=== PATIENT | female | born 1980 | race Two or more races ===

== ENCOUNTER 2023-10-24 14:47 | Emergency (ER) | payer MEDICAID ==
[~2023-10-24] VITALS: Ht 157.5 cm; Wt 72.2 kg
[2023-10-24 15:55] VITALS: BP 126/76; PULSE 101; RESP 18; O2SAT 98
[2023-10-24] MEDS ORDERED: IBUPROFEN 800 MG TAB PO ONE (16:30)
[2023-10-24] MEDS ORDERED: cefTRIAXone SOD 1,000 MG VL IM ONE (16:30)
[2023-10-24] MEDS ORDERED: CLIN300C70 PO (16:31)
[2023-10-24] MEDS ORDERED: IBUP-1454 PO (16:31)
[2023-10-24 16:33] VITALS: TEMP 98.6
== END 2023-10-24 16:49 | disposition home or self-care (01) ==
LOC: ER 14:47
DX: K04.7 Periapical abscess without sinus (principal); Z79.1 Long term (current) use of non-steroidal anti-inflammatories (NSAID); Z79.2 Long term (current) use of antibiotics
CPT/HCPCS: 96372; 99283; J0696

== ENCOUNTER 2024-07-27 09:22 | Emergency (ER) | payer MEDICAID, OTHER ==
[~2024-07-27] VITALS: Ht 154.9 cm; Wt 71.0 kg
[~2024-07-27 09:22] MED LIST: CLIN1CAP70 PO; IBUP-1454 PO
[2024-07-27 10:02] VITALS: BP 128/72; PULSE 85; RESP 16; TEMP 98.7; O2SAT 100
--- NOTE | 2024-07-27 10:02 | ED.PDOC ---
Musculoskeletal HPI Comments 43 y/o female pt presents to the clinic for left hip pain. Pt reports that she slipped 3 weeks ago landing on the left knee. Pt reports that she had a hip replacement 3 years ago. Pt denies a history of sciatica pain. Pt has taken 600mg ibuprofen for pain. Pt reports last dosage at 10pm last night. Patient reports that the pain radiates down the lower left leg. Patient is mostly concerned due to the pain increasing over the past 2 weeks. Patient has on a hip brace. Patient is ambulatory. Patient states the pain is increased standing in place. Patient denies any pelvic pain. Chief Complaint: Fall Injury Time Seen by MD: 09:47 Primary Care Provider: WARREN Reviewed Notes: Nurses Notes, Medications, Allergies Allergies: Coded Allergies: NO KNOWN ALLERGIES (Unverified , 10/24/23) Home Meds Active Scripts Gabapentin (Once-Daily) (Gabapentin) 300 Mg Tab, 300 MG PO Q12HR for 7 Days, #14 TAB Prov:JAYCEE KLEIN BANKMAN 07/27/24 Ibuprofen (Ibuprofen) 600 Mg Tab, 600 MG PO Q8HPRN PRN for 30 Days, #90 TAB 0 Refills Prov:JAYCEE KLEIN BANKMAN 07/27/24 Ibuprofen (Ibuprofen) 600 Mg Tab, 1 TAB PO TID, #30 TAB Prov:ELOISA ROMAN 10/24/23 Clindamycin Hcl (Clindamycin Hcl) 300 Mg Cap, 1 CAP PO TID, #30 CAP Prov:ELOISA ROMAN 10/24/23 Information Source: Patient Mode of Arrival: Ambulatory Past Medical History PAST MEDICAL HISTORY: Denies Surgical History: Tubal Ligation, Denies all surgeries Surgical History (Other): Left hip replacement in 2020 TESTING CONSULTANT History: No Pertinent TESTING CONSULTANT History Family History Family History: Reviewed,noncontributory to illness Social History Smoker: Non-Smoker Alcohol: Denies ETOH Use Drugs: Denies Drug Use Lives In: Home Musculoskeletal: reports: joint pain (Left hip) Physical Exam General Appearance: No Apparent Distress, Normal HEENT: Normal ENT Inspection, Pharynx Normal, TMs Normal Neck: Full Range of Motion, Non-Tender, Normal, Normal Inspection Respiratory: Chest Non-Tender, Lungs Clear, No Accessory Muscle Use, No Respiratory Distress, Normal Breath Sounds Cardiovascular: No Edema, No JVD, No Murmur, No Gallop, Normal Peripheral Pulses, Regular Rate/Rhythm Breast Exam: Deferred Gastrointestinal: No Organomegaly, Non Tender, No Pulsatile Mass, Normal Bowel Sounds, Soft Genitalia: Deferred Pelvic: Deferred Rectal: Deferred Extremities: No calf tenderness, Normal capillary refill, Normal inspection, Normal range of motion, No pedal edema, Pelvis stable, Tender (Left hip, left buttocks) Musculoskeletal : Location: Left Extremity Location: Hip Apperance: Normal, Tenderness: Mild Neurologic: Alert, health insurance agent II-XII nml as Tested, No Motor Deficits, Normal Affect, Normal Mood, No Sensory Deficits Cerebellar Function: Normal Reflexes: Normal Skin: Dry, Normal Color, Warm Lymphatic: No Adenopathy Was a procedure done? Was a procedure done?: No Differential Diagnosis EXT Differential Diagnosis: Fracture, Sprain, Dislocation, Contusion, Strain, Arthritis X-Ray, Labs, Meds, VS Vital Signs Date Time Temp Pulse Resp B/P (MAP) Pulse Ox O2 Delivery O2 Flow Rate FiO2 07/27/24 10:02 85 16 100 Room Air 07/27/24 10:02 98.7 85 16 128/72 (90) 100 98.7 07/27/24 09:31 98.7 85 16 128/72 (90) 100 Lab Test 07/27/24 10:03 Range/Units Urine Test Negative Negative Current Medications Medications (Trade) Dose Ordered Sig/Wagner Route Start Time Stop Time Status Last Admin Acetaminophen/ Hydrocodone Bitart ([place] 7.5/325MG Tab) 1 tab ONCE ONCE PO 07/27/24 10:15 07/27/24 10:39 DC 07/27/24 10:42 ORDERING PHYSICIAN: JAYCEE KLEIN PROCEDURE(s): LHIP - L HIP COMPLETE XRAY REASON: h/o left hip replacement ORDER NUMBER(s): [id number], ACCESSION NUMBER(s): [id number] XY L HIP COMPLETE XRAY HISTORY: h/o left hip replacement TECHNICAL DATA: Frontal view was obtained of the pelvis with frontal view and frog lateral view of the left hip. COMPARISON: None FINDINGS: Left hip arthroplasty appears intact and in good alignment. No left hip fracture is identified. There is no abnormality involving the bony pelvis. The sacroiliac joints appear normal. The pubic symphysis appears normal. A surgical pin is seen in the right femur.. The proximal femurs demonstrate no acute abnormality. There is degenerative change of the visualized lower lumbar spine. IMPRESSION: Left hip arthroplasty appears intact and in good alignment. ATED BY: MITCH BABCOCK MD DICTATED DATE/TIME: 07/27/24 1206 SIGNED BY: MITCH BABCOCK MD SIGNED DATE/TIME: 07/27/24 1206 CC: X-Ray, Labs, Meds, VS Comment Patient advised to take ibuprofen and [place] as prescribed. Patient to follow up with primary care physician in the next 2-3 days. On re-evaluation patient has symptomatic improvement. Patient is stable for discharge at this time. All test results and diagnostic imaging have been interpreted. All diagnostic findings, discharge care, and education instruction provided to the patient. Follow-up with PCP in 2-3 days Patient verbalized understanding, discharge instructions and agrees to treatment plan Vital signs are stable Patient is ambulatory Patient advised of which symptoms necessitate a return visit to the emergency room. Patient to return emergency room for any new worsening symptoms. Patient is aware that the purpose of this visit is for an acute medical emergency requiring emergent stabilization. Chronic conditions, including malignancies have not been ruled out. Patient is instructed to follow up with PCP as directed for continued care and workup. If unable to arrange follow up, patient is to return to the emergency room for reassessment. Patient was given verbal and written discharge instructions and acknowledges understanding Time of 1ST Reevaluation: 13:00 Reevaluation 1ST: Improved Patient Education/Counseling: Diagnosis, Treatment, Prognosis Family Education/Counseling: No Family Present Departure 1 Departure Time of Disposition: 13:10 Impression: Primary Impression: Sciatica of left side Additional Impressions: Left hip pain History of hip replacement Qualified Codes: Z96.642 - Presence of left artificial hip joint Ruled Out: Dental infection Disposition: HOME / SELF CARE / HOMELESS Condition: Stable e-Prescriptions Gabapentin (Once-Daily) (Gabapentin) 300 Mg Tab 300 MG PO Q12HR for 7 Days, #14 TAB Prov: JAYCEE KLEIN BANKMAN 07/27/24 Ibuprofen (Ibuprofen) 600 Mg Tab 600 MG PO Q8HPRN PRN for 30 Days, #90 TAB 0 Refills Prov: JAYCEE KLEIN BANKMAN 07/27/24 Critical Care Note Critical Care Time?: No Stability Stability form required: No Heart Score Heart Score: Heart Score Response (Comments) Value History N/A 0 EKG N/A 0 Age N/A 0 Risk Factors N/A 0 Troponin N/A 0 Total 0 JAYCEE KLEIN [facility] Jul 27, 2024 10:02
[2024-07-27] MEDS: HYDROcodone-ACET 7.5/325MG TAB PO ONE (10:42)
--- NOTE | 2024-07-27 12:08 | DVH ---
XY L HIP COMPLETE XRAY HISTORY: h/o left hip replacement TECHNICAL DATA: Frontal view was obtained of the pelvis with frontal view and frog lateral view of th e left hip. COMPARISON: None FINDINGS: Left hip arthroplasty appears intact and in good alignment. No left hip fracture is identified. There is no abnormality involving the bony pelvis. The sacroiliac joints appear normal. The pubic symphysi s appears normal. A surgical pin is seen in the right femur.. The proximal femurs demonstrate no acut e abnormality. There is degenerative change of the visualized lower lumbar spine. IMPRESSION: Left hip arthroplasty appears intact and in good alignment.
[2024-07-27] MEDS ORDERED: IBUP-1454 PO (12:26)
[2024-07-27] MEDS ORDERED: HYDR1TAB97 PO (12:26)
[2024-07-27] MEDS ORDERED: GABA300T4 PO (13:59)
[2024-07-28] MEDS ORDERED: CYCL-837 PO (19:50)
== END 2024-07-27 12:29 | disposition home or self-care (01) ==
LOC: ER 09:22
DX: M25.552 Pain in left hip (principal); M54.32 Sciatica, left side; Z79.1 Long term (current) use of non-steroidal anti-inflammatories (NSAID); Z96.642 Presence of left artificial hip joint; Z98.51 Tubal ligation status; Z32.02 Encounter for pregnancy test, result negative
CPT/HCPCS: 73502; 81025

== ENCOUNTER 2025-08-16 14:46 | Inpatient (IN) | payer MEDICAID, OTHER ==
[~2025-08-16] VITALS: Ht 157.5 cm; Wt 71.0 kg
[~2025-08-16 14:46] MED LIST changes: +CYCL-837 PO
--- NOTE | 2025-08-16 16:34 | ED.PDOC ---
HPI (NEURO) HPI Comments 44 y/o F, presents to the ED for CC of dizziness. Patient states, she has been experiencing symptoms of dizziness with associated nausea, vomiting, and headache x2days. Patient reports, symptoms to worsen with light exertion feeling as if she will lose her balance. Patient denies headache with aura, chest pain, or shortness of breath. Chief Complaint: Dizziness Time Seen by MD: 16:05 Primary Care Provider: WARREN Reviewed Notes: Nurses Notes, Medications, Allergies Information Source: Patient Mode of Arrival: Ambulatory Severity: Moderate Dizziness/Weakness Severity: Unable to do activities Headache Severity: Moderate Timing: Days Duration: Since onset Prehospital treatment: None Headache Location: Generalized Onset: With light exertion Circumstances: Spontaneous Symptoms: Vertigo Before: Normal During: Awake After: Normal Mentation History of: None Modifying factors: Nothing Associated Signs and Symptoms: Headache, Nausea, Vomiting Past Medical History PAST MEDICAL HISTORY: Denies Surgical History: Cholecystectomy, Tubal Ligation BUSINESS LINE MANAGER History: No Pertinent BUSINESS LINE MANAGER History Family History Family History: Reviewed,noncontributory to illness Social History Smoker: Non-Smoker Alcohol: Denies ETOH Use Drugs: Denies Drug Use Lives In: Home Constitutional: denies: chills, diaphoresis, fatigue, fever, malaise, sweats, weakness, others EENTM: denies: blurred vision, double vision, ear bleeding, ear discharge, ear drainage, ear pain, ear ringing, eye pain, eye redness, hearing loss, mouth pain, mouth swelling, nasal discharge, nose bleeding, nose congestion, nose pain, photophobia, tearing, throat pain, throat swelling, voice changes, others Respiratory: denies: cough, hemoptysis, orthopnea, SOB at rest, shortness of breath, SOB with excertion, stridor, wheezing, others Cardiovascular: denies: chest pain, dizzy spells, diaphoresis, Dyspnea on exertion, edema, irregular heart beat, left arm pain, lightheadedness, palpitations, PND, syncope, others Gastrointestinal: reports: vomiting; denies: abdomen distended, abdominal pain, blood streaked bowels, constipated, diarrhea, dysphagia, difficulty swallowing, hematemesis, melena, nausea, poor appetite, poor fluid intake, rectal bleeding, rectal pain, others Genitourinary: denies: abnormal vagina bleeding, burning, dyspareunia, dysuria, flank pain, frequency, hematuria, incontinence, pain, , vagina discharge, urgency, others Neurological: reports: dizziness, headache; denies: fainting, left sided numbness, left sided weakness, numbness, paresthesia, pre-existing deficit, right sided numbness, right sided weakness, seizure, speech problems, tingling, tremors, weakness, others Musculoskeletal: denies: back pain, gout, joint pain, joint swelling, muscle pain, muscle stiffness, neck pain, others Integumetry: denies: bruises, change in color, change in hair/nails, dryness, laceration, lesions, lumps, rash, wounds, others Allergic/Immunocompromised: denies: Difficulty Healing, Frequent Infections, Hives, Itching, others Hematologic/Lymphatic: denies: anemia, blood clots, easy bleeding, easy bruising, swollen glands, others Endocrine: denies: excessive hunger, excessive sweating, excessive thirst, excessive urination, flushing, intolerance to cold, intolerance to heat, unexplained weight gain, unexplained weight loss, others Psychiatric: denies: anxiety, bipolar disorder, depression, hopeless, panic disorder, schizophrenia, sleepless, suicidal, others All Other Systems: Reviewed and Negative Physical Exam General Appearance: Moderate Distress HEENT: Normal ENT Inspection, Pharynx Normal, TMs Normal Neck: Full Range of Motion, Non-Tender, Normal, Normal Inspection Respiratory: Chest Non-Tender, Lungs Clear, No Accessory Muscle Use, No Respiratory Distress, Normal Breath Sounds Cardiovascular: No Edema, No JVD, No Murmur, No Gallop, Normal Peripheral Pulses, Regular Rate/Rhythm Breast Exam: Deferred Gastrointestinal: No Organomegaly, Non Tender, No Pulsatile Mass, Normal Bowel Sounds, Soft Genitalia: Deferred Pelvic: Deferred Rectal: Deferred Extremities: No calf tenderness, Normal capillary refill, Normal inspection, Normal range of motion, Non-tender, No pedal edema Musculoskeletal : Apperance: Normal Neurologic: Alert, hydroponics worker II-XII nml as Tested, No Motor Deficits, Normal Affect, Normal Mood, No Sensory Deficits Cerebellar Function: Normal Reflexes: Normal Skin: Dry, Normal Color, Warm Peripheral Pulses: 3+ Radial (R), 3+ Radial (L) Lymphatic: No Adenopathy Was a procedure done? Was a procedure done?: No Differential Diagnosis (SZ) Seizure: Psychogenic Seizure, Anticonvulsant Withdrawl, CVA/TIA General Weakness: Vertigo: central, Vertigo: peripheral X-Ray, Labs, Meds, VS Vital Signs Date Time Temp Pulse Resp B/P (MAP) Pulse Ox O2 Delivery O2 Flow Rate FiO2 08/16/25 16:36 98.1 90 18 128/92 (104) 98 98.1 08/16/25 14:48 98.2 96 18 125/92 98 98.2 Lab Test 08/16/25 16:28 08/16/25 15:30 Range/Units White Blood Count 8.6 4.4-10.8 10^3/uL Red Blood Count 4.29 4.0-5.20 10^6/uL Hemoglobin 13.4 12.2-16.2 g/dL Hematocrit 39.0 36.0-46.0 % Mean Corpuscular Volume 91.0 80.0-100.0 fL Mean Corpuscular Hemoglobin 31.4 28.0-32.0 pg Mean Corpuscular Hemoglobin Concent 34.5 32.0-36.0 g/dL Red Cell Distribution Width 12.7 11.8-14.3 % Platelet Count 346 140-450 10^3/uL Mean Platelet Volume 7.3 6.9-10.8 fL Neutrophils (%) (Auto) 57.1 37.0-80.0 % Lymphocytes (%) (Auto) 31.5 10.0-50.0 % Monocytes (%) (Auto) 8.4 0.0-12.0 % Eosinophils (%) (Auto) 2.4 0.0-7.0 % Basophils (%) (Auto) 0.6 0.0-2.0 % Neutrophils # (Auto) 4.9 1.6-8.6 10 ^3/uL Lymphocytes # (Auto) 2.7 0.4-5.4 10 ^3/uL Monocytes # (Auto) 0.7 0-1.3 10 ^3/uL Eosinophils # (Auto) 0.2 0-0.8 10 ^3/uL Basophils # (Auto) 0.1 0-0.2 10 ^3/uL Nucleated Red Blood Cells 0.0 % Sodium Level 139 136-145 mmol/L Potassium Level 3.8 3.5-5.1 mmol/L Chloride Level 102 98-107 mmol/L Carbon Dioxide Level 30 20-31 mmol/L Anion Gap 7 5-15 Blood Urea Nitrogen 13 9-23 mg/dL Creatinine 0.81 0.550-1.02 mg/dL Glomerular Filtration Rate Calc 91 >90 mL/min BUN/Creatinine Ratio 16.0 10.0-20.0 Serum Glucose 99 74-106 mg/dL Calcium Level 9.5 8.7-10.4 mg/dL Urine Color Light-yellow Yellow Urine Clarity Clear Clear Urine pH 5.5 5.0-9.0 Urine Specific [place] 1.027 1.001-1.035 Urine Protein Negative Negative Urine Ketones Negative Negative Urine Blood 2+ H Negative /uL Urine Nitrite Negative Negative Urine Bilirubin Negative Negative Urine Urobilinogen Normal Negative mg/dL Urine Leukocyte Esterase Negative Negative /uL Urine RBC 4 0 - 4 /hpf Urine Microscopic WBC 2 0-5 /HPF Urine Squamous Epithelial Cells Few <5 /hpf Urine Bacteria None seen None Seen /hpf Urine Mucus Few None Seen Urine Glucose Normal Normal mg/dL Patient alert. She is dizzy. Vitals stable. Answering all questions. Able to ambulate without any help. CT of the head. Explained to the patient. Continue monitoring. Time of 1ST Reevaluation: 16:35 Reevaluation 1ST: Unchanged Patient Education/Counseling: Diagnosis, Treatment Family Education/Counseling: No Family Present Departure 1 Departure Time of Disposition: 17:02 Impression: Primary Impression: Autonomic disorder Disposition: ADMITTED INPATIENT Admit to: Med Surg Condition: Guarded Critical Care Note Critical Care Time?: No Stability Stability form required: No Heart Score Heart Score: Heart Score Response (Comments) Value History N/A 0 EKG N/A 0 Age N/A 0 Risk Factors N/A 0 Troponin N/A 0 Total 0 I personally scribed for EILEEN APODACA MD ([email or web address]) on 08/16/25 at 16:34. Electronically submitted by Venus Godinez [email or web address]). EILEEN APODACA MD Aug 16, 2025 16:34
[2025-08-16 16:42] LABS: Hematocrit 39.0 % (36.0-46.0); Hemoglobin 13.4 g/dL (12.2-16.2); Mean Corpuscular Hemoglobin 31.4 pg (28.0-32.0); Mean Corpuscular Volume 91.0 fL (80.0-100.0); Nucleated Red Blood Cells % 0.0 %
[2025-08-16 16:46] LABS: Chloride 102 mmol/L (98-107); Potassium 3.8 mmol/L (3.5-5.1); Sodium 139 mmol/L (136-145)
[2025-08-16 16:47] LABS: Urine Protein, UAD Negative (Negative)
[2025-08-16 16:47] LABS: Anion Gap 7 (5-15); Calcium 9.5 mg/dL (8.7-10.4); Carbon Dioxide 30 mmol/L (20-31)
[2025-08-16 16:52] LABS: BUN/Creatinine Ratio 16.0 (10.0-20.0); Blood Urea Nitrogen 13 mg/dL (9-23); Glucose 99 mg/dL (74-106)
--- NOTE | 2025-08-16 18:08 | DVH ---
CT HEAD WITHOUT CONTRAST Indication: dizzy EXAM DATE: 08/16/2025 05:12 PM COMPARISON: None TECHNIQUE: CT of the head without intravenous contrast. RADIATION DOSE: CTDIvol: 52.33 mGy, DLP: 838.99 mGy*cm FINDINGS: There is no intracranial hemorrhage. There is no extra-axial fluid, mass, mass effect or midline shift. The ventricles are midline and normal in size. Basilar cisterns are patent. 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 The paranasal sinuses and mastoids are well-pneumatized. Imaged portion of the orbits are unremarkable. IMPRESSION: No intracranial hemorrhage or mass effect. 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 MRI brain can be obtained to evaluate for superimposed acute infarction.
[2025-08-16 21:33] VITALS: BP 137/91; PULSE 67; RESP 18; TEMP 98.3; O2SAT 100
[2025-08-16 22:07] VITALS: BP 137/91; PULSE 68; RESP 17; TEMP 98.3; O2SAT 100
[2025-08-16] MEDS: MECLIZINE HCL 25 MG TAB PO ONE (22:16)
[2025-08-16] MEDS ORDERED: HYDROcodone-ACET 7.5/325MG TAB PO PRN (22:30)
[2025-08-16] MEDS ORDERED: ACETAMINOPHEN 325 MG TAB PO PRN (22:30)
[2025-08-16] MEDS ORDERED: ONDANSETRON HCL 4 MG/2 ML VIAL IV PRN (22:30)
[2025-08-16] MEDS ORDERED: TEMAZEPAM 15 MG CAP PO PRN (22:30)
--- NOTE | 2025-08-16 22:38 | DVHHP2 ---
History of Present Illness Reason for Visit: Dizziness History of Present Illness 44-year-old female presents for evaluation of dizziness. Patient reports a two day history of developing dizziness with associated nausea and vomiting. She states that yesterday she developed a severe headache as well. Patient also reports feeling off balance. No unilateral weakness or slurred speech. No cardiac or respiratory complaints. Past Medical History Denies Past Surgical History Tubal ligation, cholecystectomy Family History Noncontributory Smoke: No ALCOHOL: none Drugs: None Lives: with Family Review of Systems Review of Systems Review of systems are currently negative otherwise addressed in HPI. Allergies: Coded Allergies: NO KNOWN ALLERGIES (Unverified , 10/24/23) Exam Vital Signs Vital Signs Date Time Temp Pulse Resp B/P (MAP) Pulse Ox O2 Delivery O2 Flow Rate FiO2 08/16/25 22:07 98.3 68 17 137/91 (106) 100 98.3 08/16/25 21:33 Room Air* 0 21 Exam Gen: 44-year-old female in mild distress Skin: Warm, dry, normal color and texture, no rash. HEENT: Normocephalic atraumatic, mucous membranes moist and pink. Neck: Cervical and supraclavicular nodes normal without enlargement, trachea is midline, thyroid gland is normal without masses. Pulmonary: Clear to auscultation and percussion bilaterally. Cardiac: Regular rate and rhythm. No murmur Abdomen: Soft, nontender, nondistended, bowel sounds present all 4 quadrants, no guarding, no rigidity, no organomegaly. Extremities: No cyanosis, clubbing, no edema Neuro: Cranial nerves II through XII grossly intact, normal affect and speech, no focal motor deficits. Labs/Xrays ORDERING PHYSICIAN: EILEEN APODACA MD PROCEDURE(s): HWOCT - HEAD WITHOUT CONTRAST REASON: dizzy ORDER NUMBER(s): [id number], ACCESSION NUMBER(s): [id number] CT HEAD WITHOUT CONTRAST Indication: dizzy EXAM DATE: 08/16/2025 05:12 PM COMPARISON: None TECHNIQUE: CT of the head without intravenous contrast. RADIATION DOSE: CTDIvol: 52.33 mGy, DLP: 838.99 mGy*cm FINDINGS: There is no intracranial hemorrhage. There is no extra-axial fluid, mass, mass effect or midline shift. The ventricles are midline and normal in size. Basilar cisterns are patent. 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 The paranasal sinuses and mastoids are well-pneumatized. Imaged portion of the orbits are unremarkable. IMPRESSION: No intracranial hemorrhage or mass effect. 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 MRI brain can be obtained to evaluate for superimposed acute infarction. Labs Test 08/16/25 16:28 08/16/25 15:30 Range/Units White Blood Count 8.6 4.4-10.8 10^3/uL Red Blood Count 4.29 4.0-5.20 10^6/uL Hemoglobin 13.4 12.2-16.2 g/dL Hematocrit 39.0 36.0-46.0 % Mean Corpuscular Volume 91.0 80.0-100.0 fL Mean Corpuscular Hemoglobin 31.4 28.0-32.0 pg Mean Corpuscular Hemoglobin Concent 34.5 32.0-36.0 g/dL Red Cell Distribution Width 12.7 11.8-14.3 % Platelet Count 346 140-450 10^3/uL Mean Platelet Volume 7.3 6.9-10.8 fL Neutrophils (%) (Auto) 57.1 37.0-80.0 % Lymphocytes (%) (Auto) 31.5 10.0-50.0 % Monocytes (%) (Auto) 8.4 0.0-12.0 % Eosinophils (%) (Auto) 2.4 0.0-7.0 % Basophils (%) (Auto) 0.6 0.0-2.0 % Neutrophils # (Auto) 4.9 1.6-8.6 10 ^3/uL Lymphocytes # (Auto) 2.7 0.4-5.4 10 ^3/uL Monocytes # (Auto) 0.7 0-1.3 10 ^3/uL Eosinophils # (Auto) 0.2 0-0.8 10 ^3/uL Basophils # (Auto) 0.1 0-0.2 10 ^3/uL Nucleated Red Blood Cells 0.0 % Sodium Level 139 136-145 mmol/L Potassium Level 3.8 3.5-5.1 mmol/L Chloride Level 102 98-107 mmol/L Carbon Dioxide Level 30 20-31 mmol/L Anion Gap 7 5-15 Blood Urea Nitrogen 13 9-23 mg/dL Creatinine 0.81 0.550-1.02 mg/dL Glomerular Filtration Rate Calc 91 >90 mL/min BUN/Creatinine Ratio 16.0 10.0-20.0 Serum Glucose 99 74-106 mg/dL Calcium Level 9.5 8.7-10.4 mg/dL Urine Color Light-yellow Yellow Urine Clarity Clear Clear Urine pH 5.5 5.0-9.0 Urine Specific [place] 1.027 1.001-1.035 Urine Protein Negative Negative Urine Ketones Negative Negative Urine Blood 2+ H Negative /uL Urine Nitrite Negative Negative Urine Bilirubin Negative Negative Urine Urobilinogen Normal Negative mg/dL Urine Leukocyte Esterase Negative Negative /uL Urine RBC 4 0 - 4 /hpf Urine Microscopic WBC 2 0-5 /HPF Urine Squamous Epithelial Cells Few <5 /hpf Urine Bacteria None seen None Seen /hpf Urine Mucus Few None Seen Urine Glucose Normal Normal mg/dL SEPSIS Sepsis Screen Date sepsis recognized/suspect: Aug 16, 2025 Time Sepsis recognized/suspect: 1450 Recent Procedure: No On Antibiotic Therapy: No Respiratory Rate >20: No Heart Rate >90: Yes Temp<36 C (96.8 F) or >38.3 C: No SBP <90 or MAP <65 mmHG: No New Acute Mental Status Change: No Is the patient on CPAP, BIPAP,: No Physician Orders Head Without Contrast (08/16/25 17:02) Admit (08/16/25 19:53) Hepatitis B Surface Antigen (08/16/25 22:06) Hepatitis C Antibody (08/16/25 22:06) Education - Smoking Cessation (08/16/25 22:06) * Smoking Cessation Consult (08/16/25 22:06) Brain Head Wo Contrast (08/16/25 22:30) Sumatriptan Succinate Tablet (Imitrex Ta (08/16/25 22:30) Meclizine Tablet (Antivert Tablet) (08/16/25 22:30) Thyroid Stimulating Hormone (08/16/25 22:30) Temazepam (Restoril) (08/16/25 22:30) Ondansetron Hcl (Zofran) (08/16/25 22:30) Condition: Stable (08/16/25 22:30) Acetaminophen Tablet (Tylenol Tablet) (08/16/25 22:30) Bedrest With Bathroom Privileg (08/16/25 22:30) Hydrocodone-Acet 7.5/325mg Tab ([place] 7. (08/16/25 22:30) Vital Signs Date Time Temp Pulse Resp B/P (MAP) Pulse Ox O2 Delivery O2 Flow Rate FiO2 08/16/25 22:07 98.3 68 17 137/91 (106) 100 98.3 08/16/25 21:33 98.3 67 18 137/91 (106) 100 98.3 08/16/25 21:33 67 18 100 Room Air* 0 21 08/16/25 21:25 Room Air* 0 21 08/16/25 18:38 82 16 126/92 (103) 98 08/16/25 16:36 98.1 90 18 128/92 (104) 98 98.1 08/16/25 14:48 98.2 96 18 125/92 98 98.2 Laboratory Tests Test 08/16/25 16:28 White Blood Count 8.6 10^3/uL (4.4-10.8) Medications Medications Dose Ordered Sig/Wagner Route Start Time Stop Time Status Last Admin Dose Admin Meclizine HCl 25 mg ONCE ONCE PO 08/16/25 17:15 08/16/25 17:16 DC 08/16/25 22:16 25 MG Assessment/Plan Assessment/Plan Assessment Dizziness Intractable headache Plan Admit the patient to [facility] to the hospitalist MRI of the brain pending Sumatriptan/meclizine Pain management Continue treatment per orders. Plan discussed with: Patient My Orders Orders - RODNA WINTERS Procedure Category Date Status Time Admit ADMIT 08/16/25 Transmitted 19:53 Hepatitis B Surface LAB 08/16/25 In Process Antigen 22:06 Hepatitis C Antibody LAB 08/16/25 In Process 22:06 Education - Smoking [place] 08/16/25 In Process Cessation 22:06 * Smoking Cessation CONS 08/16/25 Transmitted Consult 22:06 Brain Head Wo Contrast MRI 08/16/25 Verified 22:30 Sumatriptan Succinate PHA 08/16/25 Verified Tablet (Imitrex Ta 22:30 Meclizine Tablet PHA 08/16/25 Verified (Antivert Tablet) 22:30 Thyroid Stimulating LAB 08/16/25 Verified Hormone 22:30 Temazepam (Restoril) PHA 08/16/25 Verified 22:30 Ondansetron Hcl PHA 08/16/25 Verified (Zofran) 22:30 Condition: Stable [place] 08/16/25 Verified 22:30 Acetaminophen Tablet PHA 08/16/25 Verified (Tylenol Tablet) 22:30 Bedrest With Bathroom [place] 08/16/25 Verified Privileg 22:30 Hydrocodone-Acet PHA 08/16/25 Verified 7.5/325mg Tab (Sabinal 22:30 Date of Service: Aug 16, 2025 Billing Provider: RONDA WINTERS Common Visit Codes: [id number] INP/OBS CARE (MOD) RONDA WINTERS Aug 16, 2025 22:38
[2025-08-17 01:00] VITALS: BP 126/83; PULSE 80; RESP 16; TEMP 98.1; O2SAT 96
[2025-08-17 05:00] VITALS: BP 120/70; PULSE 95; RESP 16; TEMP 98.2; O2SAT 94
[2025-08-17 08:30] VITALS: BP 137/97; PULSE 94; RESP 18; TEMP 98.2; O2SAT 97
--- NOTE | 2025-08-17 09:20 | DVH ---
MRI BRAIN WITHOUT CONTRAST History: Dizziness, headache Comparison: CT HEAD WITHOUT CONTRAST on DOS: 08/16/25 Technique: Multi-sequence, multiplanar magnetic resonance images of the brain are reviewed. Findings: No acute hemorrhage or infarct is seen. Few T2/FLAIR hyperintense foci in the periventricular and subcortical white matter, suggestive of chronic microvascular disease. The ventricles and sulci are normal in size and configuration for the patient's age. There is no evidence of mass or mass effect. There are no abnormal extra-axial fluid collections. The major intracranial blood vessels retain normal flow voids consistent with their patency. Essentially clear paranasal sinuses. Mastoid air cells are clear.. IMPRESSION: No acute intracranial abnormality.
--- NOTE | 2025-08-17 10:51 | ECG ---
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
[2025-08-17 12:30] VITALS: BP 145/99; PULSE 91; RESP 18; TEMP 98.1; O2SAT 98
[2025-08-17] MEDS: MECLIZINE HCL 25 MG TAB PO PRN (13:02)
[2025-08-17 13:13] LABS: Hepatitis B Surface Antigen Negative (Negative)
[2025-08-17 13:31] LABS: Hepatitis C Antibody Negative (Negative)
--- NOTE | 2025-08-17 16:01 | DVHDS2 ---
Discharge Summary Date of Admission Aug 16, 2025 at 19:53 Date of Discharge: Aug 17, 2025 Admitting Diagnosis Dizziness Labs/Diagnostic Data: Laboratory Results Test 08/16/25 16:28 08/16/25 15:30 White Blood Count 8.6 10^3/uL (4.4-10.8) Red Blood Count 4.29 10^6/uL (4.0-5.20) Hemoglobin 13.4 g/dL (12.2-16.2) Hematocrit 39.0 % (36.0-46.0) Mean Corpuscular Volume 91.0 fL (80.0-100.0) Mean Corpuscular Hemoglobin 31.4 pg (28.0-32.0) Mean Corpuscular Hemoglobin Concent 34.5 g/dL (32.0-36.0) Red Cell Distribution Width 12.7 % (11.8-14.3) Platelet Count 346 10^3/uL (140-450) Mean Platelet Volume 7.3 fL (6.9-10.8) Neutrophils (%) (Auto) 57.1 % (37.0-80.0) Lymphocytes (%) (Auto) 31.5 % (10.0-50.0) Monocytes (%) (Auto) 8.4 % (0.0-12.0) Eosinophils (%) (Auto) 2.4 % (0.0-7.0) Basophils (%) (Auto) 0.6 % (0.0-2.0) Neutrophils # (Auto) 4.9 10 ^3/uL (1.6-8.6) Lymphocytes # (Auto) 2.7 10 ^3/uL (0.4-5.4) Monocytes # (Auto) 0.7 10 ^3/uL (0-1.3) Eosinophils # (Auto) 0.2 10 ^3/uL (0-0.8) Basophils # (Auto) 0.1 10 ^3/uL (0-0.2) Nucleated Red Blood Cells 0.0 % Sodium Level 139 mmol/L (136-145) Potassium Level 3.8 mmol/L (3.5-5.1) Chloride Level 102 mmol/L (98-107) Carbon Dioxide Level 30 mmol/L (20-31) Anion Gap 7 (5-15) Blood Urea Nitrogen 13 mg/dL (9-23) Creatinine 0.81 mg/dL (0.550-1.02) Glomerular Filtration Rate Calc 91 mL/min (>90) BUN/Creatinine Ratio 16.0 (10.0-20.0) Serum Glucose 99 mg/dL (74-106) Calcium Level 9.5 mg/dL (8.7-10.4) Thyroid Stimulating Hormone (TSH) 1.37 uIU/mL (0.55-4.78) Hepatitis B Surface Antigen Negative (Negative) Hepatitis C Antibody Negative (Negative) Urine Color Light-yellow (Yellow) Urine Clarity Clear (Clear) Urine pH 5.5 (5.0-9.0) Urine Specific [place] 1.027 (1.001-1.035) Urine Protein Negative (Negative) Urine Ketones Negative (Negative) Urine Blood 2+ /uL (Negative) Urine Nitrite Negative (Negative) Urine Bilirubin Negative (Negative) Urine Urobilinogen Normal mg/dL (Negative) Urine Leukocyte Esterase Negative /uL (Negative) Urine RBC 4 /hpf (0 - 4) Urine Microscopic WBC 2 /HPF (0-5) Urine Squamous Epithelial Cells Few /hpf (<5) Urine Bacteria None seen /hpf (None Seen) Urine Mucus Few (None Seen) Urine Glucose Normal mg/dL (Normal) Other Laboratory Tests 08/16/25 16:28 Brief Hx & Hospital Course: History of Present Illness 44-year-old female presents for evaluation of dizziness. Patient reports a two day history of developing dizziness with associated nausea and vomiting. She states that yesterday she developed a severe headache as well. Patient also reports feeling off balance. No unilateral weakness or slurred speech. No cardiac or respiratory complaints. Course of Hospitalization CT scan of the head unremarkable. MRI of the brain unremarkable. Patient does report having some photophobia and dizziness as well as nausea which has somewhat improved. Patient will be given a trial of IV Toradol and be discharged home. She will be given a prescription for both sumatriptan and Zofran for any nausea. She is instructed to follow up with the PCP in 1-2 weeks. All questions answered. Physical examination General: Alert and Oriented x3. No acute distress. Well-nourished. Eyes: EOMI. Anicteric. HENT: Moist mucous membranes. Lungs: Clear to auscultation bilaterally. No accessory muscle use. Cardiovascular: Regular rate and rhythm. No murmur. No JVD. Abdomen: Soft, non-tender and non-distended. No palpable masses. Extremities: No edema. Non-tender. Skin: No rashes or lesions. Warm. Neurologic: No focal neurological deficits. CN II-XII grossly intact, but not individually tested. Psychiatric: Cooperative. Appropriate mood and affect. Total time spent with patient discussing and formulating plan of care: 35 minutes. This medical document was created using an electronic medical record system with [employer] dictation system. Although this document has been carefully reviewed, there may still be some phonetic and typographical errors. These areas are purely typographical due to imperfections of the software programs, and do not reflect any compromise in the patient's medical care. Condition at Discharge: Fair Final Diagnosis/Problems List Headache Discharge Disposition: Home Discharge Instruct/Medications Diet: Regular Activity: No Restrictions, As Tolerated Follow Up/Referral: PCP in 1-2 weeks Medications: Sumatriptan 50mg po daily Scheduled Clindamycin Hcl (Clindamycin Hcl), 1 CAP PO TID Cyclobenzaprine Hcl (Cyclobenzaprine Hcl), 1 TAB PO QHSP Ibuprofen (Ibuprofen), 1 TAB PO TID Scheduled PRN Ibuprofen (Ibuprofen), 600 MG PO Q8HPRN PRN 36 Discharge Statement: "Patient was advised to return to the ER or call 911 if any headaches, dizziness, shortness of breath, chest pain, abdominal pain, bleeding, fevers, or worsening of medical condition. Patient was counseled about treatment plan, medications, possible side effects, patientverbalized understanding. All questions were answered to the best of my ability. This discharge took greater then 30 minutes in planning, reviewing documentation, counseling the patient, and discussing with other team members." ASSESSMENT ASSESSMENT Assessment Headache Date of Service: Aug 17, 2025 Billing Provider: ROBERT NOONAN NP Common Visit Codes: 33901-XHH/OBS DISCH DAY >30min ROBERT NOONAN NP Aug 17, 2025 16:01
[2025-08-17] MEDS ORDERED: ZOFR4T PO (16:03)
[2025-08-17] MEDS ORDERED: SUMA50TA2 PO (16:03)
[2025-08-17] MEDS: KETOROLAC TROMETH 30 MG/ML 1ML VIAL IV ONE (16:07)
== END 2025-08-17 17:05 | disposition home or self-care (01) | DRG 54 ==
LOC: ER 14:46 → OVERFLOW 19:53
PROVIDERS: ADMIT Nurse Practitioner Acute Care; ATTEND Nurse Practitioner Acute Care
DX: G43.909 Migraine, unspecified, not intractable, without status migrainosus (principal); Z90.49 Acquired absence of other specified parts of digestive tract; Z98.51 Tubal ligation status
CPT/HCPCS: 36415; 70450; 70551; 80048; 81001; 84443; 85025; 86803; 87340; 93005; G0378; J1885